=== PATIENT | female | born 1975 | race Caucasian/White ===

== ENCOUNTER 2019-04-24 22:33 | Emergency (ER) | payer OTHER ==
[~2019-04-24] VITALS: Ht 157.5 cm; Wt 83.9 kg
--- NOTE | 2019-04-24 23:24 | PHYS DOC ---
Past Medical History Past Medical History: No Pertinent History Past Surgical History: , Tubal ligation Additional Past Surgical Histo: RIGHT KNEE SX Alcohol Use: None Drug Use: None Adult General Chief Complaint Chief Complaint: Neck Pain HPI HPI Patient is a 44 year old female that presents with right neck swelling and pain has been ongoing for a couple hours. The patient states that she feels that she's had a little bit difficulty swallowing over the last day and that she's been feeling hot. The patient rates her pain 7 out of 10 in severity sharp and throbbing. Review of Systems Review of Systems Constitutional: Reports subjective fever or chills [] Eyes: Denies change in visual acuity, redness, or eye pain [] HENT: Reports sore throat. Respiratory: Denies cough or shortness of breath [] Cardiovascular: No additional information not addressed in HPI [] GI: Denies abdominal pain, nausea, vomiting, bloody stools or diarrhea [] : Denies dysuria or hematuria [] Musculoskeletal: Denies back pain or joint pain [] Integument: Reports neck pain and swelling. Neurologic: Denies headache, focal weakness or sensory changes [] Endocrine: Denies polyuria or polydipsia [] Complete systems were reviewed and found to be within normal limits, except as documented in this note. Current Medications Current Medications Current Medications Medications (Trade) Dose Ordered Sig/Suzanne Start Time Stop Time Status Last Admin Dose Admin Iohexol (Omnipaque 300 Mg/ml) 70 ml 1X ONCE 04/25/19 00:30 04/25/19 00:31 UNV 04/25/19 00:23 70 ML Morphine Sulfate (Morphine Sulfate) 4 mg 1X ONCE 04/24/19 23:30 04/24/19 23:31 DC 04/25/19 00:23 4 MG Sodium Chloride 1,000 ml @ 1,000 mls/hr 1X ONCE 04/24/19 23:30 04/25/19 00:29 DC 04/25/19 00:23 1,000 MLS/HR Allergies Allergies Allergies Coded Allergies Type Severity Reaction Last Updated Verified No Known Drug Allergies 04/24/19 No Physical Exam Physical Exam Constitutional: Well developed, well nourished, no acute distress, non-toxic appearance. [] HENT: Normocephalic, atraumatic, bilateral external ears normal, oropharynx moist, no oral exudates, nose normal. [] Eyes: PERRLA, EOMI, conjunctiva normal, no discharge. [] Neck: Normal range of motion, tenderness to right side of neck, supple, no stridor. Pain and edema to R neck, supramandibular lymph node swelling. Cardiovascular:Heart rate regular rhythm, no murmur [] Lungs & Thorax: Bilateral breath sounds clear to auscultation [] Abdomen: Bowel sounds normal, soft, no tenderness, no masses, no pulsatile masses. [] Skin: Warm, dry, no erythema, no rash. [] Back: No tenderness, no CVA tenderness. [] Extremities: No tenderness, no cyanosis, no clubbing, ROM intact, no edema. [] Neurologic: Alert and oriented X 3, normal motor function, normal sensory function, no focal deficits noted. [] Psychologic: Affect normal, judgement normal, mood normal. [] Current Patient Data Vital Signs Vital Signs Date Time Temp Pulse Resp B/P (MAP) Pulse Ox O2 Delivery O2 Flow Rate FiO2 04/25/19 00:23 21 98 Room Air 04/24/19 22:45 97.7 91 134/96 (109) 97.7 Lab Values Laboratory Tests Test 04/24/19 23:30 White Blood Count 8.0 x10^3/uL (4.0-11.0) Red Blood Count 4.29 x10^6/uL (3.50-5.40) Hemoglobin 12.3 g/dL (12.0-15.5) Hematocrit 36.4 % (36.0-47.0) Mean Corpuscular Volume 85 fL (79-100) Mean Corpuscular Hemoglobin 29 pg (25-35) Mean Corpuscular Hemoglobin Concent 34 g/dL (31-37) Red Cell Distribution Width 15.8 % (11.5-14.5) H Platelet Count 269 x10^3/uL (140-400) Neutrophils (%) (Auto) 62 % (31-73) Lymphocytes (%) (Auto) 31 % (24-48) Monocytes (%) (Auto) 6 % (0-9) Eosinophils (%) (Auto) 1 % (0-3) Basophils (%) (Auto) 0 % (0-3) Neutrophils # (Auto) 5.0 x10^3/uL (1.8-7.7) Lymphocytes # (Auto) 2.5 x10^3/uL (1.0-4.8) Monocytes # (Auto) 0.5 x10^3/uL (0.0-1.1) Eosinophils # (Auto) 0.1 x10^3/uL (0.0-0.7) Basophils # (Auto) 0.0 x10^3/uL (0.0-0.2) Sodium Level 141 mmol/L (136-145) Potassium Level 3.3 mmol/L (3.5-5.1) L Chloride Level 105 mmol/L (98-107) Carbon Dioxide Level 28 mmol/L (21-32) Anion Gap 8 (6-14) Blood Urea Nitrogen 8 mg/dL (7-20) Creatinine 0.8 mg/dL (0.6-1.0) Estimated GFR (Cockcroft-Gault) 78.3 BUN/Creatinine Ratio 10 (6-20) Glucose Level 121 mg/dL (70-99) H Calcium Level 9.4 mg/dL (8.5-10.1) Total Bilirubin 0.3 mg/dL (0.2-1.0) Aspartate Amino Transferase (AST) 17 U/L (15-37) Alanine Aminotransferase (ALT) 22 U/L (14-59) Alkaline Phosphatase 118 U/L (46-116) H C-Reactive Protein, Quantitative 6.4 mg/L (0-3.3) H Total Protein 7.2 g/dL (6.4-8.2) Albumin 3.1 g/dL (3.4-5.0) L Albumin/Globulin Ratio 0.8 (1.0-1.7) L Laboratory Tests 04/24/19 23:30 Laboratory Tests 04/24/19 23:30 EKG EKG [] Radiology/Procedures Radiology/Procedures [][facility] [address] [place] [address] IMAGING REPORT Signed PATIENT: SHALONDA TAFOYA ACCOUNT: [id number] : 1975 LOCATION: ER AGE: 44 SEX: F EXAM STATUS: REG ER ORD. PHYSICIAN: GEREMIAS KIRBY APRN REASON: pain, tenderness of right side of neck PROCEDURE: CT SOFT TISSUE NECK W/CONTRAST Examination: CT soft tissue neck with IV contrast HISTORY: History of pain, tenderness right side of the neck COMPARISON: None available TECHNIQUE: Axial CT images of the soft tissue neck were performed with IV contrast. Coronal and sagittal reformats are performed. Exposure: One or more of the following individualized dose reduction techniques were utilized for this examination: 1. Automated exposure control 2. Adjustment of the mA and/or kV according to patient size 3. Use of iterative reconstruction technique FINDINGS: The visualized intracranial portion grossly appears unremarkable. The visualized parotid glands, masticators spaces grossly appears unremarkable. The bilateral parapharyngeal spaces grossly appears unremarkable. The vallecula, piriform sinuses grossly appears unremarkable. Mildly enlarged right cervical level 2 lymph node identified measuring 1.5 cm. The visualized mandibular glands grossly appears unremarkable. The visualized paranasal sinuses, mastoid air cells are clear. IMPRESSION: 1. Mild enlarged right cervical level II lymph node identified otherwise unremarkable exam. Electronically signed by: Bob Crum MD (04/25/2019 12:41 AM) [facility] DICTATED and SIGNED BY: BOB CRUM MD DATE: 04/25/19 0041 Course & Med Decision Making Course & Med Decision Making Pertinent Labs and Imaging studies reviewed. (See chart for details) Will get labs, and CT soft tissue of neck w/contrast. Will also give supportive care. Labs and CT are unremarkable with exception of lymph node involvement. Will d/c home to follow up with primary care provider. Will give Decadron before discharge. Dragon Disclaimer Dragon Disclaimer This electronic medical record was generated, in whole or in part, using a voice recognition dictation system. Departure Departure Impression: Primary Impression: Neck pain Disposition: HOME, SELF-CARE Condition: STABLE Referrals: NON,STAFF (PCP) Additional Instructions: Please follow up with your primary care doctor regarding the and lymph node swelling. Thank you for visiting [facility]. We appreciate you trusting us with your care. If any additional problems come up don't hesitate to return to visit us. Please follow up with your primary care provider so they can plan additional care if needed and know about the problem that you had. If symptoms worsen come back to the Emergency Department. Any concerning symptoms that start such as chest pain, shortness of air, weakness or numbness on one side of the body, running high fevers or any other concerning symptoms return to the ER. GEREMIAS KIRBY APRN Apr 24, 2019 23:24
[2019-04-24] MEDS ORDERED: IV NORMAL SALINE 1000ML BAG 1,000 ML IV ONE (23:30)
[2019-04-24] MEDS ORDERED: MORPHINE SULFATE 4 MG/ML VIAL. IV ONE (23:30)
[2019-04-24 23:47] LABS: BASO % 0 % (0-3); EOS # 0.1 x10^3/uL (0.0-0.7); EOS % 1 % (0-3); HEMATOCRIT 36.4 % (36.0-47.0); HEMOGLOBIN 12.3 g/dL (12.0-15.5); LYMPH # 2.5 x10^3/uL (1.0-4.8); LYMPH % 31 % (24-48); MEAN CORPUSCULAR HEMOGLOBIN 29 pg (25-35); MEAN CORPUSCULAR HGB CONC 34 g/dL (31-37); MEAN CORPUSCULAR VOLUME 85 fL (79-100); MONO # 0.5 x10^3/uL (0.0-1.1); MONO % 6 % (0-9); NEUT % 62 % (31-73); PLATELET COUNT 269 x10^3/uL (140-400); RED BLOOD COUNT 4.29 x10^6/uL (3.50-5.40); RED CELL DISTRIBUTION WIDTH 15.8 % (11.5-14.5)
[2019-04-24 23:54] LABS: CALCIUM 9.4 mg/dL (8.5-10.1); CREATININE 0.8 mg/dL (0.6-1.0); GFR 78.3; POTASSIUM 3.3 mmol/L (3.5-5.1)
[2019-04-25] LABS: ALBUMIN 3.1 g/dL (3.4-5.0); ALBUMIN/GLOBULIN RATIO 0.8 (1.0-1.7); C-REACTIVE PROTEIN 6.4 mg/L (0-3.3); TOTAL BILIRUBIN 0.3 mg/dL (0.2-1.0); TOTAL PROTEIN 7.2 g/dL (6.4-8.2)
[2019-04-25] MEDS ORDERED: IOHEXOL 300 MG/ML 100ML VIAL. IV ONE (00:30)
--- NOTE | 2019-04-25 00:43 | RAD ---
Examination: CT soft tissue neck with IV contrast HISTORY: History of pain, tenderness right side of the neck COMPARISON: None available TECHNIQUE: Axial CT images of the soft tissue neck were performed with IV contrast. Coronal and sagittal reformats are performed. Exposure: One or more of the following individualized dose reduction techniques were utilized for this examination: 1. Automated exposure control 2. Adjustment of the mA and/or kV according to patient size 3. Use of iterative reconstruction technique FINDINGS: The visualized intracranial portion grossly appears unremarkable. The visualized parotid glands, masticators spaces grossly appears unremarkable. The bilateral parapharyngeal spaces grossly appears unremarkable. The vallecula, piriform sinuses grossly appears unremarkable. Mildly enlarged right cervical level 2 lymph node identified measuring 1.5 cm. The visualized mandibular glands grossly appears unremarkable. The visualized paranasal sinuses, mastoid air cells are clear. IMPRESSION: 1. Mild enlarged right cervical level II lymph node identified otherwise unremarkable exam. Electronically signed by: Bob Crum MD (04/25/2019 12:41 AM) [facility]
[2019-04-25] MEDS ORDERED: DEXAMETHASONE 4 MG TABLET PO STA (00:58)
[2019-04-25 01:00] VITALS: BP 131/67
[2019-04-25] MEDS ORDERED: DEXAMETHASONE 4 MG TABLET ONE (01:04)
[2019-04-25] MEDS ORDERED: IOHEXOL 300 MG/ML 100ML VIAL. ONE (03:31)
== END 2019-04-25 01:11 | disposition home or self-care (01) ==
LOC: ER 22:33
DX: M54.2 Cervicalgia (principal); R59.9 Enlarged lymph nodes, unspecified
CPT/HCPCS: 36415; 70491; 80053; 85025; 86140; 96374; 99285; J2270; J7030; J8540; Q9967